=== PATIENT | male | born 1960 | race Caucasian/White ===

== ENCOUNTER 2016-09-05 14:18 | Emergency (ER) | payer MEDICAID ==
[~2016-09-05] VITALS: Ht 170.2 cm; Wt 80.0 kg
[2016-09-05 18:41] LABS: *AMPHETAMINES SCREEN URINE NEGATIVE (NEGATIVE); *BARBITURATES SCREEN URINE NEGATIVE (NEGATIVE); *BENZODIAZEPINES SCREEN URINE NEGATIVE (NEGATIVE); *COCAINE SCREEN URINE NEGATIVE (NEGATIVE); CANNABINOID URINE SCREEN NEGATIVE (NEGATIVE); METHADONE URINE SCREEN NEGATIVE (NEGATIVE); OPIATES URINE SCREEN NEGATIVE (NEGATIVE); PHENCYCLIDINE URINE SCREEN NEGATIVE (NEGATIVE)
[2016-09-05 19:17] LABS: EOSINOPHILS % 3.8 % (0.0-5.0); HEMATOCRIT. 28.3 % (42.0-52.0); HEMOGLOBIN. 9.2 g/dL (14.0-18.0); LYMPHOCYTES % 22.3 % (20.0-50.0); MEAN CORPUSCULAR HEMOGLOBIN 27.2 pg (28.0-32.0); MEAN CORPUSCULAR VOLUME 83.9 fL (80.0-94.0); MEAN PLATELET VOLUME 7.3 fl (7.4-10.4); MONOCYTES % 11.3 % (2.0-8.0); NEUTROPHILS % 61.6 % (40.0-76.0); PLATELET 422 x1000/uL (130-400); RED BLOOD CELL COUNT 3.38 mill/uL (4.7-6.1); RED CELL DISTRIBUTION WIDTH 17.1 % (11.6-14.6)
[2016-09-05 19:21] LABS: CHLORIDE 108 mEq/L (98-107)
[2016-09-05 19:26] LABS: CARBON DIOXIDE 25 mEq/L (21-32); ETHANOL BLOOD < 10 mg/dL
[2016-09-05 20:36] VITALS: BP 138/82
== END 2016-09-05 22:19 | disposition home or self-care (01) ==
LOC: ER 14:21
DX: G89.29 Other chronic pain (principal); M79.672 Pain in left foot; I10 Essential (primary) hypertension; Z91.19 Patient's noncompliance with other medical treatment and regimen; Z59.0 Homelessness
CPT/HCPCS: 36415; 80048; 80305; 80307; 80329; 85025; 99285; G0482; Z7610

== ENCOUNTER 2016-12-15 20:37 | Emergency (ER) | payer SELFPAY ==
[~2016-12-15] VITALS: Ht 170.2 cm; Wt 86.0 kg
[2016-12-15] MEDS ORDERED: IBUPROFEN 600MG TABLET PO STA (20:58)
[2016-12-15 21:29] LABS: BASOPHILS % 0.4 % (0.0-2.0); EOSINOPHILS % 1.9 % (0.0-5.0); HEMATOCRIT. 31.8 % (42.0-52.0); HEMOGLOBIN. 10.1 g/dL (14.0-18.0); LYMPHOCYTES % 18.8 % (20.0-50.0); MEAN CORPUSCULAR HEMOGLOBIN 24.4 pg (28.0-32.0); MEAN CORPUSCULAR VOLUME 77.1 fL (80.0-94.0); MEAN PLATELET VOLUME 7.6 fl (7.4-10.4); MONOCYTES % 13.3 % (2.0-8.0); NEUTROPHILS % 65.6 % (40.0-76.0); PLATELET 342 x1000/uL (130-400); RED BLOOD CELL COUNT 4.12 mill/uL (4.7-6.1); RED CELL DISTRIBUTION WIDTH 17.6 % (11.6-14.6)
[2016-12-15 21:41] LABS: CARBON DIOXIDE 19 mEq/L (21-32); CHLORIDE 100 mEq/L (98-107); ETHANOL BLOOD 75 mg/dL
[2016-12-16 13:26] VITALS: BP 156/72
== END 2016-12-16 13:31 | disposition home or self-care (01) ==
LOC: ER 20:37
DX: L03.115 Cellulitis of right lower limb (principal); L03.116 Cellulitis of left lower limb; L97.929 Non-pressure chronic ulcer of unspecified part of left lower leg with unspecified severity; L89.109 Pressure ulcer of unspecified part of back, unspecified stage; I87.313 Chronic venous hypertension (idiopathic) with ulcer of bilateral lower extremity; L89.329 Pressure ulcer of left buttock, unspecified stage; R03.0 Elevated blood-pressure reading, without diagnosis of hypertension
CPT/HCPCS: 36415; 80053; 85025; 99284; G0482; Z7610

== ENCOUNTER 2016-12-29 04:51 | Emergency (ER) | payer MEDICAID ==
[~2016-12-29] VITALS: Ht 175.3 cm; Wt 104.0 kg
[2016-12-29 08:13] LABS: BASOPHILS % 0.3 % (0.0-2.0); EOSINOPHILS % 0.5 % (0.0-5.0); HEMATOCRIT. 29.6 % (42.0-52.0); HEMOGLOBIN. 9.6 g/dL (14.0-18.0); LYMPHOCYTES % 7.7 % (20.0-50.0); MEAN CORPUSCULAR HEMOGLOBIN 24.6 pg (28.0-32.0); MEAN CORPUSCULAR VOLUME 75.7 fL (80.0-94.0); MONOCYTES % 13.1 % (2.0-8.0); NEUTROPHILS % 78.4 % (40.0-76.0); PLATELET 421 x1000/uL (130-400); RED BLOOD CELL COUNT 3.91 mill/uL (4.7-6.1); RED CELL DISTRIBUTION WIDTH 17.3 % (11.6-14.6)
[2016-12-29 08:29] LABS: CARBON DIOXIDE 24 mEq/L (21-32); CHLORIDE 102 mEq/L (98-107)
[2016-12-29] MEDS: KETOROLAC 60MG/2ML VIAL IM ONE (08:36)
[2016-12-29] MEDS ORDERED: LEVOFLOXACIN 750MG PREMIX 150 ML IV ONE (09:45)
[2016-12-29 10:07] LABS: CHLORIDE 101 mEq/L (98-107)
[2016-12-29 10:09] LABS: INR 1.2; PROTHROMBIN TIME 12.7 sec (9.4-11.6)
[2016-12-29 10:16] LABS: CARBON DIOXIDE 24 mEq/L (21-32)
[2016-12-29] MEDS: VANCOMYCIN 1 G PREMIX 200 ML IV ONE (10:30)
[2016-12-29] MEDS: SODIUM CHLORIDE 0.9% 1000ML BAG (SEPSIS BOLUS) IV ONE (10:30)
[2016-12-29] MEDS: SODIUM CHLORIDE 0.9% 1,000 ML IV ONE (10:30)
[2016-12-29 12:10] VITALS: BP 114/71
[2017-01-01 16:19] LABS: BASOPHILS % 0.6 % (0.0-2.0); HEMATOCRIT. 27.3 % (42.0-52.0); HEMOGLOBIN. 8.8 g/dL (14.0-18.0); MEAN CORPUSCULAR HEMOGLOBIN 24.7 pg (28.0-32.0); MEAN CORPUSCULAR VOLUME 76.5 fL (80.0-94.0); MEAN PLATELET VOLUME 6.8 fl (7.4-10.4); MONOCYTES % 9.7 % (2.0-8.0); NEUTROPHILS % 72.7 % (40.0-76.0); PLATELET 450 x1000/uL (130-400); RED BLOOD CELL COUNT 3.57 mill/uL (4.7-6.1); RED CELL DISTRIBUTION WIDTH 16.7 % (11.6-14.6)
[2017-01-01 16:24] LABS: CHLORIDE 108 mEq/L (98-107)
[2017-01-01 16:27] LABS: CARBON DIOXIDE 24 mEq/L (21-32)
== END 2016-12-29 12:46 | disposition home or self-care (01) ==
LOC: ER 04:51 → EDBEDREQSVC 10:10 → ER 12:46 → CANBEDREQ 12:57
DX: L89.329 Pressure ulcer of left buttock, unspecified stage (principal); L89.899 Pressure ulcer of other site, unspecified stage; M79.604 Pain in right leg; M79.605 Pain in left leg; G89.29 Other chronic pain; I10 Essential (primary) hypertension; Z99.3 Dependence on wheelchair; Z59.0 Homelessness
CPT/HCPCS: 36415; 71010; 80048; 80053; 83605; 85025; 85610; 87040; 96365; 96372; 99285; J1885; J3370; J7030; X7700; Z7610

== ENCOUNTER 2017-01-01 08:14 | Emergency (ER) | payer SELFPAY ==
[~2017-01-01] VITALS: Ht 162.6 cm; Wt 73.0 kg
[2017-01-01 16:40] LABS: CLARITY URINE CLEAR (CLEAR); COLOR URINE YELLOW (YELLOW); GLUCOSE URINE NEGATIVE (NEGATIVE); KETONES URINE NEGATIVE (NEGATIVE); LEUKOCYTE ESTERASE URINE TRACE (NEGATIVE); NITRITE URINE NEGATIVE (NEGATIVE); OCCULT BLOOD URINE NEGATIVE (NEGATIVE); PROTEIN URINE 1+ (NEGATIVE); SPECIFIC GRAVITY URINE 1.009 (1.005-1.030)
[2017-01-01 18:45] VITALS: BP 133/79
== END 2017-01-01 19:03 | disposition home or self-care (01) ==
LOC: ER 08:53
DX: M79.605 Pain in left leg (principal); M79.604 Pain in right leg; G89.29 Other chronic pain; L89.329 Pressure ulcer of left buttock, unspecified stage; L89.319 Pressure ulcer of right buttock, unspecified stage; F10.20 Alcohol dependence, uncomplicated; I10 Essential (primary) hypertension; Z59.0 Homelessness; Y90.9 Presence of alcohol in blood, level not specified
CPT/HCPCS: 36415; 80053; 81001; 85025; 99284; Z7610; 99283